=== PATIENT | male | born 1960 | race Caucasian/White ===

== ENCOUNTER → 2016-10-31 | Outpatient (CLI) | payer OTHER ==
--- NOTE | 2016-10-31 16:34 | CR ---
EXAMINATION: Right shoulder HISTORY: Pain COMPARISON: None TECHNIQUE: 3 views FINDINGS/IMPRESSION: There is no acute osseous abnormality, dislocation, or fracture identified. Bon e mineralization and joint spaces appear preserved. Mild acromioclavicular osteophytic changes are n oted.
--- NOTE | 2016-10-31 16:35 | CR ---
EXAMINATION: Left shoulder HISTORY: Pain COMPARISON: None TECHNIQUE: 3 views FINDINGS/IMPRESSION: There is no acute osseous abnormality, dislocation, or fracture identified. Bon e mineralization and joint spaces are grossly preserved. Mild acromioclavicular osteoarthritic waters es noted.
== END ==
LOC: MW.CHORTHO 08:03
PROVIDERS: ATTEND Orthopaedic Surgery
DX: M25.511 Pain in right shoulder (principal); M25.512 Pain in left shoulder; M19.012 Primary osteoarthritis, left shoulder; M19.011 Primary osteoarthritis, right shoulder
CPT/HCPCS: 73030-26-LT; 73030-26-RT; 73030-LT; 73030-RT

== ENCOUNTER → 2016-12-14 | Outpatient (CLI) | payer OTHER ==
--- NOTE | 2016-12-15 16:25 | MR ---
EXAM DATE: 12/14/16 PATIENT'S AGE: 55 Patient: FILI CONLEY Facility: [place], [place] : 1960 Study: MRI Shoulder Right [id number]/27/2017 6:51:51 PM Ordering Physician: Kristine Sánchez Final Report: CLINICAL HISTORY: Clinical impingement syndrome of the right shoulder. TECHNIQUE: Axial, sagittal oblique and coronal oblique T1, proton density and T2 fat-sat images were obtained of the right shoulder without contrast administration. COMPARISON: No prior. FINDINGS: Rotator cuff: There is moderate distal supraspinatus tendinosis. No high-grade supraspinatus tendon tear or muscle atrophy. Mild tendinosis of the anterior aspect of the distal infraspinatus tendon. No significant infraspinatus tendon tearing or muscle atrophy. The distal teres minor tendon is intact. Teres minor muscle mass is maintained. Mild distal subscapularis tendinosis superiorly. No high-grade tear or muscle atrophy. . AC joint and coracoacromial arch: AC joint degenerative arthrosis. Osteophytes mildly efface the fat superior to the supraspinatus muscle belly. No AC joint widening or malalignment. Coracoclavicular ligament is intact. There is type 2 acromial morphology. Minor anterolateral downward sloping of the acromion. No os acromiale. No significant subacromial spur. Coracoacromial ligament thickness within normal limits. The acromiohumeral interval measures approximately 10 mm. There is a small amount of subacromial-subdeltoid bursal fluid compatible with mild bursitis. The subcoracoid interval is adequately patent. . Biceps-labral complex: The superior labrum appears intact without definite SLAP tear. The labrum below the level of the equator is grossly intact. There is no dislocation of the long head of the biceps tendon from the bicipital groove. No high-grade tendon tearing. There is tendinosis of the long head of the biceps tendon at the bicipital groove level. . Glenohumeral joint space: Physiologic quantity of joint fluid. There is no focal articular cartilage defect or intra-articular joint body. No glenohumeral joint capsular edema. No significant malalignment. . Bones and soft tissues: There is no acute fracture. No avascular necrosis. No abnormality within the suprascapular or spinoglenoid notches nor within the quadrilateral space. IMPRESSION: 1. Tendinosis of the rotator cuff tendons of the right shoulder. No high-grade tendon tearing or muscle atrophy. 2. Mild subacromial-subdeltoid bursitis. 3. AC joint degenerative arthrosis. Eugenio AMES. Musculoskeletal and Diagnostic Radiologist LISA/manju D& Transcribed: 2:15 p.m. [email or web address] EDI/Dictated by: Mitchel Cody MD @ 12/15/2016 1:43:00 PM (Electronic Signature) Report Signed by Proxy. JOSE
== END ==
LOC: MW.MRI 17:42
PROVIDERS: ATTEND Orthopaedic Surgery
DX: M75.41 Impingement syndrome of right shoulder (principal); M17.11 Unilateral primary osteoarthritis, right knee; M75.51 Bursitis of right shoulder
CPT/HCPCS: 73221-26-RT; 73221-RT

== ENCOUNTER 2021-10-30 19:42 | Emergency (ER) | payer OTHER | END 2021-10-30 21:31 | LOC: MW.ED 19:42 | DX: R07.89 Other chest pain (principal); Z88.5 Allergy status to narcotic agent; Z88.0 Allergy status to penicillin; Z86.16 Personal history of COVID-19 | CPT/HCPCS: 36415; 84484; 93005; 93010; 99283; 99283-25 ==

== ENCOUNTER 2023-06-12 16:41 | Emergency (ER) | payer OTHER ==
[2023-06-12] MEDS ORDERED: Lidocaine 1% 5 ML VIAL INJECT ONE (17:07)
[2023-06-12] MEDS ORDERED: Sulfamethoxazole/Trimethoprim 800-160 MG Tab PO STA (19:14)
== END 2023-06-12 19:51 | disposition home or self-care (01) ==
LOC: MW.ED 16:41
DX: S60.352A Superficial foreign body of left thumb, initial encounter (principal); L03.012 Cellulitis of left finger; Z88.5 Allergy status to narcotic agent; Z88.0 Allergy status to penicillin; W45.8XXA Other foreign body or object entering through skin, initial encounter
CPT/HCPCS: 10120; 73140; 99283; A9270; J3490